=== PATIENT | male | born 1995 | race African-American/Black ===

== ENCOUNTER 2020-05-30 15:50 | Emergency (ER) | payer OTHER ==
[~2020-05-30] VITALS: Ht 182.9 cm; Wt 66.7 kg
[2020-05-30] MEDS ORDERED: PROZAC40 MG PO (16:03)
[2020-05-30] MEDS ORDERED: PAXIL CR37.5 MG PO (16:03)
[2020-05-30] MEDS ORDERED: DEPAKOTE ER250 MG PO (16:03)
[2020-05-30 16:18] LABS: BASOPHILS 0.3 %; NUCLEATED RBCS 0 /100WBC; RDW-CV 14.5 % (10.5-14.5)
[2020-05-30 16:23] LABS: ABSOLUTE EOSINOPHILS 0.2 thou/uL (0.0-0.7); ABSOLUTE LYMPHOCYTES 2.5 thou/uL (0.8-5.3); ABSOLUTE MONOCYTES 0.7 thou/uL (0.0-1.2); ABSOLUTE NEUTROPHILS 2.9 thou/uL (1.6-8.1); EOSINOPHILS 3.2 %; HEMATOCRIT 45.8 % (42.0-52.0); HEMOGLOBIN 15.4 gm/dL (14.0-18.0); LYMPHOCYTES 39.1 %; MCH 26.5 pg (26.0-34.0); MCHC 33.6 g/dL (28.0-37.0); MCV 78.8 fL (80.0-100.0); MONOCYTES 11.6 %; MPV 7.9 fl. (7.2-11.1); PLATELET COUNT* 225 thou/uL (150-400); POLYS 45.8 %; RBC 5.81 mil/uL (4.50-6.00); WBC 6.4 thou/uL (4.0-11.0)
[2020-05-30 16:25] LABS: CALCIUM 8.8 mg/dL (8.5-10.1); CREATININE 1.1 mg/dL (0.6-1.3); POTASSIUM 3.8 mmol/L (3.5-5.1)
[2020-05-30 16:30] LABS: ALBUMIN 3.8 g/dL (3.4-5.0); TOTAL BILIRUBIN 0.7 mg/dL (<0.1-1.0)
[2020-05-30] MEDS ORDERED: PROAIR HFA8.5 GM INH (17:08)
[2020-05-30] MEDS ORDERED: TESSALON PERLE100 MG PO (17:08)
[2020-05-30] MEDS ORDERED: PROMETHAZI6.25 MG/5 PO (17:08)
[2020-05-30 17:10] LABS: INFLUENZA A ANTIGEN Negative (Negative); INFLUENZA B ANTIGEN Negative (Negative)
[2020-05-30 17:22] VITALS: BP 128/72
== END 2020-05-30 17:22 | disposition home or self-care (01) ==
LOC: M.ERS 15:50
PROVIDERS: Physician Assistant
DX: J06.9 Acute upper respiratory infection, unspecified (principal); Z20.828 Contact with and (suspected) exposure to other viral communicable diseases

== ENCOUNTER 2020-06-22 11:54 | Emergency (ER) | payer OTHER ==
[~2020-06-22] VITALS: Ht 182.9 cm; Wt 68.5 kg
[~2020-06-22 11:54] MED LIST: DEPAKOTE ER250 MG PO; PAXIL CR37.5 MG PO; PROAIR HFA8.5 GM INH; PROMETHAZI6.25 MG/5 PO; PROZAC40 MG PO; TESSALON PERLE100 MG PO
[2020-06-22] MEDS ORDERED: BACTRIM DS TAB1 EAC1 PO (12:44)
[2020-06-22 13:14] VITALS: BP 129/78
== END 2020-06-22 13:15 | disposition home or self-care (01) ==
LOC: M.ERS 11:54
DX: L03.113 Cellulitis of right upper limb (principal)

== ENCOUNTER 2020-08-23 07:51 | Emergency (ER) | payer OTHER ==
[~2020-08-23] VITALS: Ht 185.4 cm; Wt 68.0 kg
[~2020-08-23 07:51] MED LIST changes: +BACTRIM DS TAB1 EAC1 PO
[2020-08-23] MEDS ORDERED: KEFLEX500 M1 PO (08:37)
[2020-08-23] MEDS ORDERED: FLEXERIL PO (08:37)
[2020-08-23] MEDS ORDERED: HYDROCODON-ACE1 EAC7 PO (08:37)
[2020-08-23] MEDS ORDERED: BACTRIM DS TAB1 EACH PO (08:37)
[2020-08-23 08:39] LABS: URINE BILIRUBIN NEGATIVE (Negative); URINE BLOOD NEGATIVE (Negative); URINE CLARITY CLEAR; URINE COLOR YELLOW; URINE GLUCOSE-RANDOM NEGATIVE (Negative); URINE KETONES NEGATIVE (Negative); URINE LEUKOCYTES-REFLEX NEGATIVE (Negative); URINE NITRITE-REFLEX NEGATIVE (Negative); URINE PROTEIN TRACE (Negative); URINE SPECIFIC GRAVITY >= 1.030 (1.005-1.030); URINE UROBILINOGEN 0.2 E.U./dl (0.2-1.0)
[2020-08-23 08:46] VITALS: BP 132/88
== END 2020-08-23 08:47 | disposition home or self-care (01) ==
LOC: M.ERS 07:51
PROVIDERS: Family Medicine
DX: M43.6 Torticollis (principal); N49.2 Inflammatory disorders of scrotum

== ENCOUNTER 2020-10-10 16:48 | Emergency (ER) | payer OTHER ==
[~2020-10-10] VITALS: Ht 182.9 cm; Wt 71.2 kg
[~2020-10-10 16:48] MED LIST changes: +BACTRIM DS TAB1 EACH PO; +FLEXERIL PO; +HYDROCODON-ACE1 EAC7 PO; +KEFLEX500 M1 PO
[2020-10-10] MEDS ORDERED: PAXIL20 MG PO (17:05)
[2020-10-10] MEDS ORDERED: DEPAKOTE250 MG PO (17:05)
[2020-10-10] MEDS ORDERED: BACTRIM DS TAB1 EAC1 PO (17:19)
[2020-10-10 17:33] LABS: ABSOLUTE LYMPHOCYTES 1.4 thou/uL (0.8-5.3); ABSOLUTE MONOCYTES 0.5 thou/uL (0.0-1.2); ABSOLUTE NEUTROPHILS 4.3 thou/uL (1.6-8.1); BASOPHILS 0.4 %; EOSINOPHILS 0.6 %; MCH 26.8 pg (26.0-34.0); MCHC 32.6 g/dL (28.0-37.0); MCV 82.3 fL (80.0-100.0); MONOCYTES 8.4 %; MPV 7.8 fl. (7.2-11.1); NUCLEATED RBCS 0 /100WBC; PLATELET COUNT* 226 thou/uL (150-400); POLYS 68.6 %; RBC 4.86 mil/uL (4.50-6.00); WBC 6.2 thou/uL (4.0-11.0)
[2020-10-10 17:42] LABS: CALCIUM 9.6 mg/dL (8.5-10.1); CREATININE 0.9 mg/dL (0.6-1.3); POTASSIUM 4.1 mmol/L (3.5-5.1)
[2020-10-10 17:49] LABS: TOTAL BILIRUBIN 0.3 mg/dL (<0.1-1.0); TOTAL PROTEIN 7.8 g/dL (6.4-8.2)
[2020-10-10 20:16] LABS: URINE BILIRUBIN NEGATIVE (Negative); URINE BLOOD NEGATIVE (Negative); URINE CLARITY CLEAR; URINE COLOR YELLOW; URINE GLUCOSE-RANDOM NEGATIVE (Negative); URINE KETONES NEGATIVE (Negative); URINE LEUKOCYTES-REFLEX NEGATIVE (Negative); URINE NITRITE-REFLEX NEGATIVE (Negative); URINE PROTEIN NEGATIVE (Negative); URINE UROBILINOGEN 0.2 E.U./dl (0.2-1.0)
[2020-10-10 20:32] VITALS: BP 121/81
== END 2020-10-10 20:37 | disposition home or self-care (01) ==
LOC: M.ERS 16:48
PROVIDERS: Emergency Medicine Emergency Medical Services
DX: A57 Chancroid (principal); L08.9 Local infection of the skin and subcutaneous tissue, unspecified; F17.210 Nicotine dependence, cigarettes, uncomplicated

== ENCOUNTER 2020-11-05 12:28 | Emergency (ER) | payer OTHER ==
[~2020-11-05] VITALS: Ht 182.9 cm; Wt 70.8 kg
[~2020-11-05 12:28] MED LIST changes: +DEPAKOTE250 MG PO; +PAXIL20 MG PO
[2020-11-05] MEDS ORDERED: NORCO5 PO (12:54)
[2020-11-05] MEDS ORDERED: BACTRIM DS TAB1 EACH PO (12:54)
[2020-11-05] MEDS ORDERED: KEFLEX500 M1 PO (12:54)
[2020-11-05] MEDS ORDERED: IBUPROFEN 800800 M1 PO (12:54)
[2020-11-05 13:40] VITALS: BP 132/77
== END 2020-11-05 13:40 | disposition home or self-care (01) ==
LOC: M.ERS 12:28
DX: L02.211 Cutaneous abscess of abdominal wall (principal); F17.210 Nicotine dependence, cigarettes, uncomplicated; Z86.14 Personal history of Methicillin resistant Staphylococcus aureus infection

== ENCOUNTER 2021-02-17 13:44 | Emergency (ER) | payer OTHER ==
[~2021-02-17] VITALS: Ht 182.9 cm; Wt 71.2 kg
[~2021-02-17 13:44] MED LIST changes: +IBUPROFEN 800800 M1 PO; +NORCO5 PO
[2021-02-17] MEDS ORDERED: APAP W/CODEINE1 TA2 PO (17:12)
[2021-02-17] MEDS ORDERED: FLEXERIL PO (17:12)
[2021-02-17] MEDS ORDERED: MEDROLDOSEPACK PO (17:12)
[2021-02-17 17:48] VITALS: BP 124/74
== END 2021-02-17 17:48 | disposition home or self-care (01) ==
LOC: M.ERS 13:44
DX: M54.2 Cervicalgia (principal); M54.5 Low back pain; F17.210 Nicotine dependence, cigarettes, uncomplicated; Z98.890 Other specified postprocedural states

== ENCOUNTER 2021-03-29 17:19 | Emergency (ER) | payer OTHER ==
[~2021-03-29] VITALS: Ht 182.9 cm; Wt 74.8 kg
[~2021-03-29 17:19] MED LIST changes: +APAP W/CODEINE1 TA2 PO; +MEDROLDOSEPACK PO
[2021-03-29] MEDS ORDERED: ACETAMINOPHEN-1 EAC2 PO (21:31)
[2021-03-29] MEDS ORDERED: PHENERGAN 25 MG25 M1 PO (21:31)
[2021-03-29 21:41] VITALS: BP 121/77
== END 2021-03-29 21:42 | disposition home or self-care (01) ==
LOC: M.ERS 17:19
DX: R06.02 Shortness of breath (principal); Z20.822 Contact with and (suspected) exposure to COVID-19; F31.9 Bipolar disorder, unspecified; F17.210 Nicotine dependence, cigarettes, uncomplicated

== ENCOUNTER 2021-03-31 16:22 | Emergency (ER) | payer OTHER ==
[~2021-03-31] VITALS: Ht 182.9 cm; Wt 74.9 kg
[~2021-03-31 16:22] MED LIST changes: +ACETAMINOPHEN-1 EAC2 PO; +PHENERGAN 25 MG25 M1 PO
[2021-03-31 18:14] LABS: ABSOLUTE EOSINOPHILS 0.3 thou/uL (0.0-0.7); ABSOLUTE LYMPHOCYTES 1.3 thou/uL (0.8-5.3); ABSOLUTE MONOCYTES 0.4 thou/uL (0.0-1.2); ABSOLUTE NEUTROPHILS 2.9 thou/uL (1.6-8.1); BASOPHILS 0.3 %; EOSINOPHILS 5.7 %; HEMATOCRIT 43.1 % (42.0-52.0); HEMOGLOBIN 14.1 gm/dL (14.0-18.0); LYMPHOCYTES 26.8 %; MCH 27.8 pg (26.0-34.0); MCHC 32.8 g/dL (28.0-37.0); MCV 84.8 fL (80.0-100.0); MONOCYTES 8.4 %; MPV 8.8 fl. (7.2-11.1); NUCLEATED RBCS 0 /100WBC; PLATELET COUNT* 152 thou/uL (150-400); POLYS 58.8 %; RBC 5.08 mil/uL (4.50-6.00); RDW-CV 14.8 % (10.5-14.5)
[2021-03-31 18:22] LABS: CALCIUM 9.5 mg/dL (8.5-10.1); POTASSIUM 4.4 mmol/L (3.5-5.1)
[2021-03-31] MEDS ORDERED: PROMS25 WY RECTAL (18:23)
[2021-03-31] MEDS ORDERED: FLEXERIL PO (18:23)
[2021-03-31] MEDS ORDERED: ZOFRAN ODT4 MG PO (18:23)
[2021-03-31] MEDS ORDERED: IBUPROFEN 800800 M1 PO (18:24)
[2021-03-31 19:01] VITALS: BP 122/62
== END 2021-03-31 19:01 | disposition home or self-care (01) ==
LOC: M.ERS 16:22
PROVIDERS: Nurse Practitioner Family
DX: B34.9 Viral infection, unspecified (principal); Z20.822 Contact with and (suspected) exposure to COVID-19; F32.9 Major depressive disorder, single episode, unspecified; F17.210 Nicotine dependence, cigarettes, uncomplicated; Z79.891 Long term (current) use of opiate analgesic; Z98.890 Other specified postprocedural states